=== PATIENT | male | born 1995 | race Caucasian/White ===

== ENCOUNTER 2017-03-26 10:07 | Emergency (ER) | payer BC, OTHER ==
[~2017-03-26] VITALS: Ht 182.9 cm; Wt 120.5 kg
[~2017-03-26 10:07] MED LIST: DENIES; DIPH25CA6 PO
[2017-03-26 10:22] VITALS: Ht 182.9 cm; Wt 120.5 kg
[2017-03-26] MEDS ORDERED: HYDROCODONE/APAP (5/325) TAB PO ONE (11:00)
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
[2017-03-26] MEDS ORDERED: IBUP-1542 PO (12:01)
[2017-03-26] MEDS ORDERED: HYDR-906 PO (12:01)
[2017-03-26] MEDS ORDERED: ORPH100T PO (12:02)
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
[2017-03-26 12:32] VITALS: BP 125/60; PULSE 75; RESP 18; TEMP 98.6
== END 2017-03-26 13:58 | disposition home or self-care (01) ==
LOC: FTE 10:07
DX: R51 Headache (principal); M54.2 Cervicalgia; M79.671 Pain in right foot; Z04.1 Encounter for examination and observation following transport accident
CPT/HCPCS: 70450; 72100; 72125; 72220